=== PATIENT | female | born 1955 | race Caucasian/White ===

== ENCOUNTER 2017-12-09 08:49 | Outpatient (CLI) | payer BC ==
--- NOTE | 2017-12-21 10:26 | Mammography Report ---
DIGITAL SCREENING MAMMOGRAM: 12/09/2017 CLINICAL INDICATION: A 62-year-old with history of late childbearing, history of benign biopsy for screening. COMPARISON: The patient reports having had outside mammograms, but films are not yet available for direct comparison. If they become available, an addendum will be issued. TECHNIQUE: Routine CC and MLO projections and bilateral laterally exaggerated craniocaudal views were obtained of the breasts. FINDINGS: The breasts demonstrate heterogeneously dense fibroglandular parenchyma bilaterally. Post-biopsy changes are present bilaterally. Coarse and punctate, typically benign calcifications are present. No suspicious masses, clustered microcalcifications, or regions of architectural distortion are identified. IMPRESSION: BENIGN FINDINGS. RECOMMENDATION: Routine annual screening unless otherwise clinically indicated. BIRADS CATEGORY 2 - Benign findings. STANDARD QUALIFYING STATEMENTS 1. This examination was reviewed with the aid of Computer-Aided Detection (CAD). 2. A negative or benign imaging report should not delay biopsy if clinically suspicious findings are present. Consider surgical consultation if warranted. More than 5% of cancers are not identified by imaging. 3. Dense breasts may obscure an underlying neoplasm. TD: 12/18/2017 14:04
== END 2017-12-09 08:50 | disposition home or self-care (01) ==
LOC: DI 08:49
PROVIDERS: ATTEND Obstetrics & Gynecology
DX: Z12.31 Encounter for screening mammogram for malignant neoplasm of breast (principal)
CPT/HCPCS: 77067

== ENCOUNTER 2017-12-09 08:53 | Outpatient (CLI) | payer BC ==
--- NOTE | 2017-12-10 13:35 | DEXA Report ---
DEXA SCAN: 12/09/2017 CLINICAL INDICATION: Postmenopausal. TECHNIQUE: Dual energy x-ray absorptiometry (DXA) was performed on a [employer] system. Regions measured are the AP spine, femoral neck, and, if needed, forearm. COMPARISON: None. In accordance with the International Society for Clinical Densitometry (ISCD) guidelines, data from previous exams may be reanalyzed using current recommendations and techniques. This is done to allow a more accurate basis for comparison with the current study. FINDINGS The data for the lumbar spine is as follows: REGION BMD (g/cm/cm) T-SCORE Z-SCORE L1 0.974 -1.3 -0.1 L2 0.884 -2.6 -1.4 L3 0.878 -2.7 -1.5 L4 0.828 -3.1 -1.9 TOTAL 0.884 -2.5 -1.3 NOTE: All evaluable vertebrae are used for classification. The data for the hip is as follows: REGION BMD (g/cm/cm) T-SCORE Z-SCORE Neck 0.739 -2.1 -0.9 TOTAL 0.782 -1.8 -0.9 NOTE: The femoral neck or total proximal femur, whichever is lowest, is used for classification. IMPRESSION THE WHO CLASSIFICATION BASED ON THE INTERNATIONAL REFERENCE STANDARD IS OSTEOPOROSIS. THE FRACTURE RISK IS HIGH. RECOMMENDATION: Patients with diagnosis of osteoporosis or osteopenia should have regular bone mineral density assessment. For those eligible for Medicare, routine testing is allowed once every 2 years. Testing frequency can be increased for patients who have rapidly progressing disease or for those who are receiving medical therapy to restore bone mass. COMMENT: World Health Organization (WHO) definitions for osteoporosis and osteopenia: NORMAL BMD: T-score at 1.0 or higher, fracture risk is low. OSTEOPENIA BMD: T-score between 1.0 and -2.5, fracture risk is increased. OSTEOPOROSIS BMD: T-score at 2.5 or lower, fracture risk high. National Osteoporosis Foundation recommends: 1. Obtain adequate dietary calcium (at least 1200 mg per day) and vitamin D (400-800 international units per day). 2. Participate, as appropriate, in regular weightbearing and muscle-strengthening exercise. 3. Avoid tobacco use and reduce alcohol and caffeine intake. 4. For more detailed information see the website at www.NOF.org. TD: 12/09/2017 13:06
== END 2017-12-09 08:54 | disposition home or self-care (01) ==
LOC: DI 08:53
PROVIDERS: ATTEND Obstetrics & Gynecology
DX: Z13.820 Encounter for screening for osteoporosis (principal); M81.0 Age-related osteoporosis without current pathological fracture
CPT/HCPCS: 77080

== ENCOUNTER 2018-02-16 14:23 | Emergency (ER) | payer BC ==
[2018-02-16 14:45] VITALS: BP 117/94
--- NOTE | 2018-02-16 16:12 | ED Physician Documentation ---
PD HPI LOWER EXT INJURY - Stated complaint Stated Complaint: L SIDE TOE LAC - Chief complaint Chief Complaint: Laceration - History obtained from History obtained from: Patient - History of Present Illness PD HPI LOW EXT INJURY LOCATION: Left, Toe Type of injury: Blunt / blow (dropped object onto toe and it hit just the end of toe, with bleeding from end of nail/nailbed.) Timing - onset: How many days ago (2) Timing - details: Abrupt onset, Still present (still having bleeding at times from end of nailbed.) Associated symptoms: No: Weakness, Numbness Review of Systems Skin: reports: Laceration (s) Neurologic: denies: Focal weakness, Numbness PD PAST MEDICAL HISTORY - Past Medical History Cardiovascular: None Respiratory: None Neuro: None Endocrine/Autoimmune: None - Present Medications Home Medications: Ambulatory Orders Medication Instructions Recorded Confirmed Alendronate [Fosamax] 02/16/18 - Allergies Allergies/Adverse Reactions: Allergies Allergy/AdvReac Type Severity Reaction Status Date / Time No Known Drug Allergies Allergy Verified 02/16/18 14:45 PD ED PE NORMAL - Vitals Vital signs reviewed: Yes - General General: Alert and oriented X 3, No acute distress, Well developed/nourished - Extremities Extremities: Other (left middle toe with some blood purple coloring under nail but not pressured. There is small laceration barely visible under end of the nail. The proximal nychial area looks okay. ) Results - Vitals Vitals: Oxygen O2 Source Room air PD MEDICAL DECISION MAKING - ED course Complexity details: considered differential (looks to be just under end of the nail and not very accessible. Use Dermabond. ), d/w patient Departure - Departure Disposition: 01 Home, Self Care Clinical Impression: Nailbed laceration, toe Qualifiers: Encounter type: initial encounter Qualified Code(s): S91.219A - Laceration without foreign body of unspecified toe(s) with damage to nail, initial encounter Condition: Stable Record reviewed to determine appropriate education?: Yes Instructions: ED Laceration Foot Comments: Keep the area clean and dry. Band-Aids are okay. The Dermabond glue should fall off after a few days. That should allow time for this to seal up a bit. You will likely lose the nail over the next few weeks. That will provide time for the nailbed to heal better before it does. Tylenol ibuprofen if needed for pains. Discharge Date/Time: 02/16/18 16:40
== END 2018-02-16 16:40 | disposition home or self-care (01) ==
LOC: ED 14:23
DX: S91.215A Laceration without foreign body of left lesser toe(s) with damage to nail, initial encounter (principal); W22.8XXA Striking against or struck by other objects, initial encounter
CPT/HCPCS: 99282; 99283